=== PATIENT | female | born 1940 | race Caucasian/White ===

== ENCOUNTER → 2017-02-19 | Outpatient (CLI) | payer MEDICARE, OTHER ==
[~2017-02-19] MED LIST: ALDACTONE50 MG PO; ALLEGRA60 MG PO; DEMADEX20 MG PO; DEXILANT60 MG PO; EFFEXOR XR150 MG PO; KEFLEX250 MG PO; LEVOTHROID (SY88 MCG PO; NASONEX NASAL S17 GM NOSE; PRAVASTATIN SOD40 MG PO; PROTONIX40 M1 PO; TENORMIN25 MG PO; ZANTAC (NON-FO150 MG PO
== END ==
LOC: LGSMG 16:42
DX: R30.0 Dysuria (principal)